=== PATIENT | male | born 1980 | race Caucasian/White ===

== ENCOUNTER 2017-03-23 07:48 | Emergency (ER) | payer MEDICAID ==
--- NOTE | ~2017-03-23 | ER ---
PATIENT'S NAME: RADHA ANNA [facility] AGE: 36 Y [address] ROOM: [place] [address] LOCATION: [facility] ADMIT DATE: 03/23/2017 ER/Outpatient Report DISCHARGE DATE: 03/23/2017 FAMILY PHYSICIAN: Viktor Sahu MD ATTENDING PHYSICIAN: Mariela Lozano TIME OF ARRIVAL: 0748 hours. TIME SEEN: 0752 hours. IDENTIFICATION: A 36-year-old male. CHIEF COMPLAINT: Postop pain. HISTORY OF PRESENT ILLNESS: The patient had a pilonidal cyst removed by Dr. Taylor at [facility] one and a half months ago. He continues to have some drainage and pain in that area. He has been seen by Dr. Taylor in follow up as well as by Dr. Sahu. He changed his pain medication from [place] to Ultram and the Ultram is not helping as well as [place] helped. He has had no fever, chills, no change or increase in the drainage. PAST MEDICAL HISTORY: ALLERGIES: NO KNOWN DRUG ALLERGIES. CURRENT MEDICATIONS: 1. Tramadol 50 mg two q.8 hours p.r.n. 2. Tylenol 1000 mg p.r.n. 3. Advil p.r.n. MEDICAL PROBLEMS: Pilonidal cyst. PRIOR SURGERIES: Pilonidal cyst removal one and half months ago. SOCIAL HISTORY: The patient lives here in [place]. Tobacco use, 1 pack per day for 15-20 years, quit in 2013. Alcohol use, denies. Drug use, denies. PATIENT'S NAME: RADHA ANNA [facility] AGE: 36 Y [address] ROOM: [place] [address] LOCATION: [facility] ADMIT DATE: 03/23/2017 ER/Outpatient Report DISCHARGE DATE: 03/23/2017 FAMILY PHYSICIAN: Viktor Sahu MD ATTENDING PHYSICIAN: Mariela Lozano REVIEW OF SYSTEMS: All systems reviewed and negative other than what is noted in the HPI. PHYSICAL EXAMINATION: VITAL SIGNS: Height 5 feet 2 inches, weight 102.2 kg, blood pressure 151/93, pulse 101, respirations 16, temperature 98.7, sats 97% on room air. GENERAL: A 36-year-old male in no acute distress. The patient has a small open area just at the gluteal cleft. No drainage at this time. No surrounding erythema. Does have some tenderness. IMPRESSION: Pilonidal cyst status post excision with persistent pain. PLAN: Discontinue Ultram [place] 5/325 one p.o. q.4-6 hours p.r.n. pain, dispensed 12 with 0 refills and follow up with Dr. Sahu in 1 day. The patient understands and agrees, and all questions have been answered. We did discuss doing an additional lab testing, but at this point, he just wants some pain management and would like to get in to see another surgeon, so will talk with Dr. Sahu about that tomorrow. MD YISEL ARCOS/consuelo /[id number] d: 03/23/[id number] t: 03/26/17 0640, OUTPATIENT REPORT
== END 2017-03-23 08:16 | disposition disaster alternative care site (69) ==
LOC: GMED 07:48
DX: G89.18 Other acute postprocedural pain (principal); F17.210 Nicotine dependence, cigarettes, uncomplicated; Z98.890 Other specified postprocedural states